=== PATIENT | female | born 1980 | race Caucasian/White ===

== ENCOUNTER 2018-02-17 16:39 | Emergency (ER) | payer OTHER ==
[~2018-02-17] VITALS: Ht 160 cm; Wt 68.0 kg
[~2018-02-17 16:39] MED LIST: CYCL10 PO; DIAZ5 PO; KETO10 PO; LAMO5; Norco 5-325 Ta1 EACH PO; Percocet 5-3251 EACH PO; Zofran4 MG PO
[2018-02-17] MEDS ORDERED: DULO60 PO (16:47)
[2018-02-17] MEDS ORDERED: SEIZURE MED (16:47)
[2018-02-17 17:40] LABS: BASOPHILS ABSOLUTE AUTO 0.05 K/mm3 (0.00-0.23); BASOPHILS PERCENT AUTO 1 % (0-2); EOSINOPHILS ABSOLUTE AUTO 0.04 K/mm3 (0.00-0.68); EOSINOPHILS PERCENT AUTO 0 % (0-6); Hemoglobin 14.9 g/dL (11.5-16.0); IMMATURE GRAN ABSOLUTE AUTO 0.04 K/mm3 (0.00-0.10); IMMATURE GRAN PERCENT AUTO 0 % (0-1); LYMPHOCYTES ABSOLUTE AUTO 1.27 K/mm3 (0.84-5.20); LYMPHOCYTES PERCENT AUTO 12 % (21-46); MONOCYTES ABSOLUTE AUTO 0.59 K/mm3 (0.16-1.47); MONOCYTES PERCENT AUTO 6 % (4-13); Mean Corpuscular HGB 30.5 pg (26.0-34.0); Mean Corpuscular HGB Conc 34.7 g/dL (31.5-36.5); Mean Corpuscular Volume 88 fL (80-100); Mean Platelet Volume 11.1 fL (9.1-12.4); NEUTROPHILS ABSOLUTE AUTO 8.47 K/mm3 (1.96-9.15); NEUTROPHILS PERCENT AUTO 81 % (41-73); Platelet Count 222 K/mm3 (150-400); RDW Coefficient Variation 11.9 % (11.7-14.2); RDW Standard Deviation 38.2 fL (35.1-46.3); Red Blood Cell Count 4.89 M/mm3 (3.80-5.20); White Blood Cell Count 10.46 K/mm3 (4.00-11.30)
[2018-02-17 17:49] LABS: Anion Gap 8 mmol/L (6-16); Blood Urea Nitrogen 10 mg/dL (8-24); Bun/Creatinine Ratio 14.3 (12.0-20.0); CO2, Blood 23 mmol/L (21-32); Calcium, Blood 8.7 mg/dL (8.5-10.1); Chloride, Blood 109 mmol/L (98-108); Glomerular Filtration Rate >60 (60-); Glucose, Blood 129 mg/dL (70-99); Potassium, Blood 3.2 mmol/L (3.5-5.5); Sodium, Blood 140 mmol/L (136-145)
== END 2018-02-17 18:57 | disposition home or self-care (01) ==
LOC: ER 16:39
PROVIDERS: Emergency Medicine
DX: F41.9 Anxiety disorder, unspecified (principal); Z88.0 Allergy status to penicillin; Z88.1 Allergy status to other antibiotic agents; Z79.899 Other long term (current) drug therapy
CPT/HCPCS: 80048; 85025; 85379; 93005; 93010; 99284-25

== ENCOUNTER → 2018-05-23 | Outpatient (CLI) | payer OTHER ==
[~2018-05-23] MED LIST changes: +DULO60 PO; +SEIZURE MED
== END | disposition home or self-care (01) ==
LOC: LAB SHORT 09:51 → LAB EV 09:51
DX: N39.0 Urinary tract infection, site not specified (principal); K13.70 Unspecified lesions of oral mucosa
CPT/HCPCS: 87077; 87086; 87186; 87529

== ENCOUNTER 2018-09-18 09:02 | Day surgery (SDC) | payer OTHER | END 2018-09-18 23:00 | disposition home or self-care (01) | LOC: MOI US 09:02 | DX: D24.1 Benign neoplasm of right breast (principal); R92.8 Other abnormal and inconclusive findings on diagnostic imaging of breast | CPT/HCPCS: 19083; 77065; 88305 ==

== ENCOUNTER 2018-09-28 17:18 | Emergency (ER) | payer OTHER ==
[~2018-09-28] VITALS: Ht 160 cm; Wt 68.0 kg
[2018-09-28] MEDS ORDERED: LAMO100 PO (17:47)
[2018-09-28] MEDS ORDERED: Norco 5-325 Ta1 EACH PO (17:58)
== END 2018-09-28 18:23 | disposition home or self-care (01) ==
LOC: ER 17:18
DX: N63.11 Unspecified lump in the right breast, upper outer quadrant (principal); F41.9 Anxiety disorder, unspecified; Z79.899 Other long term (current) drug therapy
CPT/HCPCS: 96372; 99283-25; J1170

== ENCOUNTER 2018-10-01 17:55 | Emergency (ER) | payer OTHER ==
[~2018-10-01] VITALS: Ht 160 cm; Wt 68.0 kg
[~2018-10-01 17:55] MED LIST changes: +LAMO100 PO
[2018-10-01] MEDS ORDERED: Vistaril50 MG PO (19:09)
== END 2018-10-01 19:29 | disposition home or self-care (01) ==
LOC: ER 17:55
DX: F41.0 Panic disorder [episodic paroxysmal anxiety] (principal); Z88.0 Allergy status to penicillin; Z88.1 Allergy status to other antibiotic agents; Z79.899 Other long term (current) drug therapy
CPT/HCPCS: 99283

== ENCOUNTER 2018-10-30 06:10 | Day surgery (SDC) | payer OTHER ==
[~2018-10-30] VITALS: Ht 160 cm; Wt 68.5 kg
[~2018-10-30 06:10] MED LIST changes: +Vistaril50 MG PO
--- NOTE | 2018-10-30 08:16 | NUR ---
10/30/18 0816 Tita Barnett PATIENT TO PACU ON GURNEY, SLEEPING. VITAL SIGNS STABLE DRESSING DRY AND INTACT. ON ROOM AIR
--- NOTE | 2018-10-30 09:05 | NUR ---
10/30/18 0905 Wendie Spicer PT SLEEPY IN RECOVERY. PT DENIES PAIN AND NAUSEA. BREAST BINDER IN PLACE. DRESSING CDI. DC INSTRUCTIONS REVIEWED WITH AT BEDSIDE.
== END 2018-10-30 09:04 | disposition home or self-care (01) ==
LOC: ORSCSDS 06:10
PROVIDERS: Surgery
PROC: 0HBT0ZX Excision of Right Breast, Open Approach, Diagnostic (ICD-10-PCS; principal; 2018-10-30 07:30)
DX: D24.1 Benign neoplasm of right breast (principal); G40.909 Epilepsy, unspecified, not intractable, without status epilepticus; F41.8 Other specified anxiety disorders; Z79.899 Other long term (current) drug therapy
CPT/HCPCS: 88305; J0690; J1100; J1885; J2250; J2405; J2704; J3010; J7120

== ENCOUNTER → 2018-11-13 | Outpatient (CLI) | payer OTHER | END | disposition home or self-care (01) | LOC: LAB EV 08:33 → LAB SHORT 08:33 | DX: N39.0 Urinary tract infection, site not specified (principal) | CPT/HCPCS: 87077; 87086; 87186 ==

== ENCOUNTER 2020-06-06 21:37 | Emergency (ER) | payer OTHER ==
[~2020-06-06] VITALS: Ht 160 cm; Wt 56.7 kg
[2020-09-19] MEDS ORDERED: Bactrim Ds Tab1 EACH PO (01:03)
== END 2020-06-06 23:45 | disposition home or self-care (01) ==
LOC: ER 21:37
DX: S61.212A Laceration without foreign body of right middle finger without damage to nail, initial encounter (principal); Z88.0 Allergy status to penicillin; Z88.1 Allergy status to other antibiotic agents; Z79.899 Other long term (current) drug therapy; Z23 Encounter for immunization; W26.0XXA Contact with knife, initial encounter
CPT/HCPCS: 12001; 73140; 90471; 90714; 99283-25

== ENCOUNTER 2020-07-27 18:43 | Emergency (ER) | payer OTHER ==
[~2020-07-27] VITALS: Ht 160 cm; Wt 56.7 kg
[2020-09-19] MEDS ORDERED: Bactrim Ds Tab1 EACH PO (01:03)
== END 2020-07-27 21:07 | disposition home or self-care (01) ==
LOC: ER 18:43
DX: S70.02XA Contusion of left hip, initial encounter (principal); S30.0XXA Contusion of lower back and pelvis, initial encounter; Z79.899 Other long term (current) drug therapy; W17.89XA Other fall from one level to another, initial encounter; Y92.828 Other wilderness area as the place of occurrence of the external cause
CPT/HCPCS: 72100; 73502; 96374; 96375; 99283-25; J1170; J2405

== ENCOUNTER 2020-11-14 22:41 | Emergency (ER) | payer OTHER ==
[~2020-11-14] VITALS: Ht 162.6 cm; Wt 63.5 kg
[~2020-11-14 22:41] MED LIST changes: +Bactrim Ds Tab1 EACH PO
[2020-11-15] MEDS ORDERED: IBUP600 PO (00:28)
== END 2020-11-15 00:39 | disposition home or self-care (01) ==
LOC: ER 22:41
DX: S93.402A Sprain of unspecified ligament of left ankle, initial encounter (principal); Z88.0 Allergy status to penicillin; Z88.1 Allergy status to other antibiotic agents; W17.81XA Fall down embankment (hill), initial encounter
CPT/HCPCS: 72170; 73610; 96374; 96375; 99283-25; J2270; J2405

== ENCOUNTER 2021-08-09 10:16 | Emergency (ER) | payer OTHER ==
[~2021-08-09] VITALS: Ht 160 cm; Wt 56.7 kg
[~2021-08-09 10:16] MED LIST changes: +IBUP600 PO; +MONDOXYNE NL100 MG PO
[2021-08-09 11:39] LABS: Source, Urine Clean Catch
[2021-08-09 11:50] LABS: Appearance, Urine Clear (Clear); Blood, Urine Neg (Neg); Color, Urine Yellow (P-Yellow); Glucose Qualitative, Urine Neg (Neg); Ketones, Urine Neg (Neg); Leukocyte Esterase, Urine 2+ (Neg); Nitrite, Urine Pos (Neg); Protein, Urine Neg (Neg); Specific Gravity, Urine 1.005 (1.003-1.022); Urobilinogen, Urine 1+ (Normal)
[2021-08-09 12:59] LABS: Bilirubin, Urine 1+ (Neg)
[2021-08-09 13:00] LABS: Red Blood Cells, Urine 0-2 /hpf (0-2)
[2021-08-09 13:01] LABS: Bacteria Mod /hpf; Squamous Epithelial Cells Few /hpf (Few)
[2021-08-09] MEDS ORDERED: CEPH500 PO (13:07)
[2021-08-09] MEDS ORDERED: Macrobid 100 M100 MG PO (13:27)
== END 2021-08-09 13:35 | disposition home or self-care (01) ==
LOC: ER 10:16
PROVIDERS: Physician Assistant
DX: N39.0 Urinary tract infection, site not specified (principal); Z88.0 Allergy status to penicillin; Z88.8 Allergy status to other drugs, medicaments and biological substances
CPT/HCPCS: 81001; 81025; 87077; 87086; 87186; 99283